=== PATIENT | male | born 1940 | race Caucasian/White ===

== ENCOUNTER → 2016-04-29 | Outpatient (CLI) | payer MEDICARE, BC ==
[~2016-04-29] MED LIST: 00186-0372-20 IH; ASPIRIN 32325 MG/TAB; ASPIRIN 32325 MG/TAB PO; ASPIRIN 81M81 MG/TA2 PO; CARDURA 8MG TAB8 MG PO; DOXAZOCIN PO; DULERA1 ARO IH; FISH OIL1000 MG PO; MULTI VITAMINS1 TAB PO; MULTIPLE VITAMI1 CAP PO; PEPCID 20MG TAB20 MG PO; PLAVIX 75MG TAB75 MG PO; PRILOSEC 20MG20 MG PO; PRILOSEC10 MG PO; PROSCAR 5MG5 MG PO; PROSCAR PO; RT SPIRIVA18 MCG IH; SYNTHROID PO; SYNTHROID0.175 MG PO; TOPROL XL 25MG25 MG PO; TOPROL XL 50MG50 MG PO; VITAMIN B-6100 MG; ZOCOR 20MG20 MG PO; statin
== END ==
LOC: COL.RAD 06:32
DX: R07.89 Other chest pain (principal); K44.9 Diaphragmatic hernia without obstruction or gangrene; K76.9 Liver disease, unspecified
CPT/HCPCS: Q9967

== ENCOUNTER → 2016-05-01 | Outpatient (CLI) | payer MEDICARE, BC ==
[~2016-05-01] VITALS: Ht 185.4 cm; Wt 113.0 kg
[2016-05-01 08:22] VITALS: BP 124/74; PULSE 89
[2016-05-01 09:49] VITALS: BP 97/49; PULSE 87
[2016-05-01 09:50] VITALS: BP 110/55; PULSE 89
[2016-05-01 09:51] VITALS: BP 110/55; PULSE 86
== END ==
LOC: COL.CARD 08:05
DX: R07.89 Other chest pain (principal); R94.39 Abnormal result of other cardiovascular function study
CPT/HCPCS: A9502; J2785

== ENCOUNTER 2016-05-06 07:52 | Day surgery (SDC) | payer MEDICARE, BC ==
[~2016-05-06] VITALS: Ht 185.6 cm; Wt 113.0 kg
[2016-05-06] VITALS (12 sets, daily range): BP systolic 90–137; BP diastolic 51–75; PULSE 55–90; TEMP 98.2
[~2016-05-06 07:52] MED LIST changes: -PRILOSEC10 MG PO; -TOPROL XL 25MG25 MG PO
[2016-05-06 08:35] LABS: HEMATOCRIT 42.9 % (42.0-52.0); HEMOGLOBIN 14.2 g/dl (13.5-18.0); MEAN CELL VOLUME 96 fl (80.0-100.0); MEAN CORPUSCULAR HEMOGLOBIN 32 pg (27.0-31.0); MEAN CORPUSCULAR HGB CONC 33 g/dl (33.0-37.0); MEAN PLATELET VOLUME 10.1 fl (7.4-10.4); PLATELET COUNT 185 K/mm3 (130-400); RED BLOOD COUNT 4.45 M/mm3 (4.20-5.60); REDCELL DISTRIBUTION WIDTH-CV 13.8 % (11.5-14.5); WHITE BLOOD COUNT 6.8 K/mm3 (4.8-10.8)
[2016-05-06 08:43] LABS: INR 1.1 (0.8-3.0); PROTHROMBIN TIME 11.9 SECONDS (9.7-12.8)
[2016-05-06] MEDS ORDERED: PEPCID 20MG TAB20 MG PO (08:43)
[2016-05-06] MEDS ORDERED: RT SPIRIVA18 MCG IH (08:45)
[2016-05-06] MEDS ORDERED: PRILOSEC10 MG PO (08:45)
[2016-05-06 08:55] LABS: CALCIUM 9.2 mg/dL (8.4-10.2); CREATININE, serum 0.89 mg/dL (0.66-1.25); POTASSIUM 4.1 mmol/L (3.4-5.0)
[2016-05-06] MEDS ORDERED: TOPROL XL 25MG25 MG PO (16:01)
== END 2016-05-06 16:38 | disposition home or self-care (01) ==
LOC: EUO 07:52 → COL.RAD 10:45 → EUO 10:45
PROVIDERS: Internal Medicine Cardiovascular Disease
DX: I25.10 Atherosclerotic heart disease of native coronary artery without angina pectoris (principal); R94.39 Abnormal result of other cardiovascular function study; I08.3 Combined rheumatic disorders of mitral, aortic and tricuspid valves; R07.89 Other chest pain; N40.0 Benign prostatic hyperplasia without lower urinary tract symptoms; E78.5 Hyperlipidemia, unspecified; I10 Essential (primary) hypertension; E03.9 Hypothyroidism, unspecified; M19.90 Unspecified osteoarthritis, unspecified site; F17.210 Nicotine dependence, cigarettes, uncomplicated; Z79.82 Long term (current) use of aspirin; Z79.899 Other long term (current) drug therapy; Z95.5 Presence of coronary angioplasty implant and graft
CPT/HCPCS: C1760; J2250; J3010; Q9967

== ENCOUNTER → 2016-06-26 | Outpatient (CLI) | payer MEDICARE, BC ==
[~2016-06-26] MED LIST changes: +PRILOSEC10 MG PO; +TOPROL XL 25MG25 MG PO
[2016-06-26 07:34] LABS: CREATININE, serum 0.9 mg/dL (0.66-1.25)
== END ==
LOC: COL.RAD 06:37
PROVIDERS: Family Medicine
DX: R10.812 Left upper quadrant abdominal tenderness (principal)
CPT/HCPCS: Q9967

== ENCOUNTER 2018-01-14 07:39 | Day surgery (SDC) | payer MEDICARE, BC ==
[~2018-01-14] VITALS: Ht 185.5 cm; Wt 117.0 kg
[2018-01-14] VITALS (12 sets, daily range): BP systolic 105–121; BP diastolic 64–82; PULSE 60–72; TEMP 98.2
[2018-01-14 08:25] LABS: HEMATOCRIT 44.2 % (42.0-52.0); HEMOGLOBIN 14.5 g/dl (13.5-18.0); MEAN CELL VOLUME 100 fl (80.0-100.0); MEAN CORPUSCULAR HEMOGLOBIN 33 pg (27.0-31.0); MEAN CORPUSCULAR HGB CONC 33 g/dl (33.0-37.0); MEAN PLATELET VOLUME 9.9 fl (7.4-10.4); PLATELET COUNT 194 K/mm3 (130-400); RED BLOOD COUNT 4.41 M/mm3 (4.20-5.60); REDCELL DISTRIBUTION WIDTH-CV 13.6 % (11.5-14.5)
[2018-01-14 08:31] LABS: PROTHROMBIN TIME 11.9 SECONDS (9.7-12.8)
[2018-01-14 08:42] LABS: CALCIUM 9.2 mg/dL (8.4-10.2); CREATININE, serum 0.91 mg/dL (0.66-1.25); POTASSIUM 4.1 mmol/L (3.4-5.0)
== END 2018-01-14 15:23 | disposition home or self-care (01) ==
LOC: COL.CAR 07:39
PROVIDERS: Internal Medicine Cardiovascular Disease
DX: I25.119 Atherosclerotic heart disease of native coronary artery with unspecified angina pectoris (principal); I10 Essential (primary) hypertension; E78.5 Hyperlipidemia, unspecified; J44.9 Chronic obstructive pulmonary disease, unspecified; N40.0 Benign prostatic hyperplasia without lower urinary tract symptoms; M19.90 Unspecified osteoarthritis, unspecified site; F17.210 Nicotine dependence, cigarettes, uncomplicated; Z79.82 Long term (current) use of aspirin; Z82.49 Family history of ischemic heart disease and other diseases of the circulatory system; Z95.5 Presence of coronary angioplasty implant and graft
CPT/HCPCS: J1644; J2250; J3010

== ENCOUNTER 2019-09-05 03:23 | Emergency (ER) | payer MEDICARE, BC ==
[~2019-09-05] VITALS: Ht 185.4 cm; Wt 119.1 kg
[2019-09-05 03:31] VITALS: TEMP 98.1
[2019-09-05 03:54] LABS: BASO # 0.1 (0.0-0.2); BASO % 0.9 % (0.0-2.0); EOS # 0.3 (0.0-0.7); EOS % 3.5 % (0-4.0); GRAN # 4.9 (1.4-6.5); GRAN % 63.5 % (42.2-75.2); HEMATOCRIT 41.8 % (42.0-52.0); HEMOGLOBIN 13.4 g/dl (13.5-18.0); LYMPH # 1.8 (1.2-3.4); LYMPH % 23.1 % (20.0-51.0); MEAN CELL VOLUME 101 fl (80.0-100.0); MEAN CORPUSCULAR HEMOGLOBIN 32 pg (27.0-31.0); MEAN CORPUSCULAR HGB CONC 32 g/dl (33.0-37.0); MEAN PLATELET VOLUME 10.4 fl (7.4-10.4); MONO # 0.7 (0.1-0.6); MONO % 8.7 % (1.7-9.3); PLATELET COUNT 193 K/mm3 (130-400); RED BLOOD COUNT 4.15 M/mm3 (4.20-5.60)
[2019-09-05 04:07] LABS: ALANINE AMINOTRANSFERASE 12 U/L (4-49); ALBUMIN 3.8 gm/dL (3.5-5.0); ALKALINE PHOSPHATASE 69 U/L (50-136); ANION GAP 3 mmol/L (7-16); AST,SGOT 21 U/L (15-37); BILIRUBIN,TOTAL 0.4 mg/dL (0.0-1.0); BLOOD UREA NITROGEN 17 mg/dL (9-20); CALCIUM 8.8 mg/dL (8.4-10.2); CARBON DIOXIDE 30 mmol/L (22-30); CHLORIDE 106 mmol/L (98-107); CREATININE, serum 0.89 (0.66-1.25); GLUCOSE 107 mg/dL (74-106); POTASSIUM 3.9 mmol/L (3.4-5.0); SODIUM 138 mmol/L (137-145); TOTAL PROTEIN 6.9 gm/dL (6.4-8.2)
[2019-09-05 04:19] LABS: TROPONIN-I < 0.012 ng/mL (0.000-0.035)
[2019-09-05 04:47] VITALS: BP 154/70; PULSE 68
== END 2019-09-05 04:47 | disposition home or self-care (01) ==
LOC: COL.ER 03:23
PROVIDERS: Emergency Medicine
DX: G44.009 Cluster headache syndrome, unspecified, not intractable (principal); J44.9 Chronic obstructive pulmonary disease, unspecified; E03.9 Hypothyroidism, unspecified; E78.5 Hyperlipidemia, unspecified; F17.210 Nicotine dependence, cigarettes, uncomplicated; Z95.9 Presence of cardiac and vascular implant and graft, unspecified; Z79.82 Long term (current) use of aspirin; Z79.890 Hormone replacement therapy

== ENCOUNTER 2022-04-12 13:34 | Emergency (ER) | payer MEDICARE, BC ==
[~2022-04-12] VITALS: Ht 185.4 cm; Wt 120.5 kg
[2022-04-12 13:52] VITALS: TEMP 98
[2022-04-12 14:07] LABS: BASO # 0.1 K/mm3 (0.0-0.2); BASO % 0.7 % (0.0-2.0); EOS # 0.2 K/mm3 (0.0-0.7); EOS % 2.5 % (0.0-4.0); GRAN # 5.4 K/mm3 (1.4-6.5); GRAN % 63.5 % (42.2-75.2); HEMATOCRIT 40.2 % (42.0-52.0); HEMOGLOBIN 12.9 g/dl (13.5-18.0); LYMPH # 2.1 K/mm3 (1.2-3.4); MEAN CELL VOLUME 100 fl (80.0-100.0); MEAN CORPUSCULAR HEMOGLOBIN 32 pg (27-31); MEAN CORPUSCULAR HGB CONC 32 g/dl (33.0-37.0); MEAN PLATELET VOLUME 10.2 fl (7.4-10.4); MONO # 0.7 K/mm3 (0.1-0.6); MONO % 7.8 % (1.7-9.3); PLATELET COUNT 221 K/mm3 (130-400); RED BLOOD COUNT 4.01 M/mm3 (4.20-5.60); REDCELL DISTRIBUTION WIDTH-CV 13.4 % (11.5-14.5)
[2022-04-12 14:30] LABS: ALANINE AMINOTRANSFERASE 11 U/L (0-55); ALBUMIN 3.3 gm/dL (3.4-4.8); ALKALINE PHOSPHATASE 65 U/L (40-150); ANION GAP 10 mmol/L (7-16); AST,SGOT 11 U/L (5-34); BILIRUBIN,TOTAL 0.3 mg/dL (0.2-1.2); BLOOD UREA NITROGEN 21 mg/dL (8-26); CARBON DIOXIDE 27 mmol/L (23-31); CHLORIDE 108 mmol/L (98-107); CREATININE, serum 0.88 mg/dL (0.72-1.25); GLUCOSE 99 mg/dL (70-99); POTASSIUM 4.5 mmol/L (3.5-4.5); SODIUM 145 mmol/L (136-145); TOTAL PROTEIN 6.5 gm/dL (6.2-8.1)
[2022-04-12 14:36] LABS: TROPONIN-I < 0.010 ng/mL (0.00-0.033)
[2022-04-12 16:35] VITALS: BP 121/71; PULSE 72
[2022-04-13] MEDS ORDERED: NEURONTIN300 MG/CAP PO (16:44)
[2022-04-13] MEDS ORDERED: 00186-0372-20 IH (16:47)
[2022-04-15] MEDS ORDERED: LIPITOR 80MG80 MG PO (10:29)
[2022-04-15] MEDS ORDERED: PLAVIX 75MG TAB75 MG PO (10:29)
[2022-04-15] MEDS ORDERED: IMDUR 60MG60 MG/TAB PO (10:30)
[2022-04-15] MEDS ORDERED: TOPROL XL 25MG25 MG PO (10:31)
[2022-04-15] MEDS ORDERED: ASPIRIN 81M81 MG/TA2 PO (10:31)
== END 2022-04-12 16:41 | disposition home or self-care (01) ==
LOC: COL.ER 13:34
PROVIDERS: Emergency Medicine
DX: R07.9 Chest pain, unspecified (principal); F17.210 Nicotine dependence, cigarettes, uncomplicated; Z28.310 Unvaccinated for COVID-19

== ENCOUNTER 2022-04-30 10:16 | Emergency (ER) | payer MEDICARE, BC ==
[~2022-04-30] VITALS: Ht 185.4 cm; Wt 118.2 kg
[~2022-04-30 10:16] MED LIST changes: +IMDUR 60MG60 MG/TAB PO; +LIPITOR 80MG80 MG PO; +NEURONTIN300 MG/CAP PO
[2022-04-30 10:38] LABS: BASO # 0.1 K/mm3 (0.0-0.2); EOS # 0.2 K/mm3 (0.0-0.7); EOS % 2.6 % (0.0-4.0); GRAN # 4.8 K/mm3 (1.4-6.5); GRAN % 66.4 % (42.2-75.2); HEMOGLOBIN 13.5 g/dl (13.5-18.0); LYMPH # 1.6 K/mm3 (1.2-3.4); LYMPH % 22.3 % (20.0-51.0); MEAN CELL VOLUME 99 fl (80.0-100.0); MEAN CORPUSCULAR HEMOGLOBIN 33 pg (27-31); MEAN CORPUSCULAR HGB CONC 33 g/dl (33.0-37.0); MEAN PLATELET VOLUME 9.8 fl (7.4-10.4); MONO # 0.6 K/mm3 (0.1-0.6); MONO % 7.6 % (1.7-9.3); PLATELET COUNT 220 K/mm3 (130-400); RED BLOOD COUNT 4.13 M/mm3 (4.20-5.60); REDCELL DISTRIBUTION WIDTH-CV 13.9 % (11.5-14.5)
[2022-04-30 10:50] LABS: PROTHROMBIN TIME 11.1 SECONDS (9.7-12.8)
[2022-04-30 10:58] LABS: ALANINE AMINOTRANSFERASE 16 U/L (0-55); ALBUMIN 3.7 gm/dL (3.4-4.8); ALKALINE PHOSPHATASE 66 U/L (40-150); ANION GAP 9 mmol/L (7-16); AST,SGOT 13 U/L (5-34); BILIRUBIN,TOTAL 0.6 mg/dL (0.2-1.2); BLOOD UREA NITROGEN 11 mg/dL (8-26); CALCIUM 9.4 mg/dL (8.4-10.2); CARBON DIOXIDE 27 mmol/L (23-31); CHLORIDE 105 mmol/L (98-107); CREATININE, serum 0.84 mg/dL (0.72-1.25); GLUCOSE 113 mg/dL (70-99); POTASSIUM 4.1 mmol/L (3.5-4.5); SODIUM 141 mmol/L (136-145); TOTAL PROTEIN 6.8 gm/dL (6.2-8.1)
[2022-04-30 11:06] LABS: TROPONIN-I < 0.010 ng/mL (0.00-0.033)
[2022-04-30 13:19] VITALS: BP 105/87; PULSE 70; TEMP 98.1
== END 2022-04-30 13:05 | disposition home or self-care (01) ==
LOC: COL.ER 10:16
PROVIDERS: Physician Assistant
DX: T82.847A Pain due to cardiac prosthetic devices, implants and grafts, initial encounter (principal); R07.89 Other chest pain; F17.200 Nicotine dependence, unspecified, uncomplicated; Y71.8 Miscellaneous cardiovascular devices associated with adverse incidents, not elsewhere classified; Z79.82 Long term (current) use of aspirin; Z79.02 Long term (current) use of antithrombotics/antiplatelets; Z95.5 Presence of coronary angioplasty implant and graft

== ENCOUNTER 2023-10-24 11:19 | Emergency (ER) | payer MEDICARE, BC ==
[~2023-10-24] VITALS: Ht 185.4 cm; Wt 119.1 kg
[~2023-10-24 11:19] MED LIST changes: +ASMANEX HF200 MCG/Ac IH; +DULERA1 AR1 IH; +LUTEIN6 MG PO; +NEURONTIN100 MG/CAP PO; +NITROSTAT0.4 MG/TAB SL; +VITAMIN D31000 IU PO
[2023-10-24 11:25] VITALS: TEMP 98.2
[2023-10-24 12:26] LABS: BASO # 0.1 K/mm3 (0.0-0.2); BASO % 0.8 % (0.0-2.0); EOS # 0.2 K/mm3 (0.0-0.7); EOS % 2.8 % (0.0-4.0); GRAN # 5.3 K/mm3 (1.4-6.5); GRAN % 67.3 % (42.2-75.2); HEMATOCRIT 43.3 % (42.0-52.0); HEMOGLOBIN 13.8 g/dl (13.5-18.0); LYMPH # 1.7 K/mm3 (1.2-3.4); LYMPH % 21.1 % (20.0-51.0); MEAN CELL VOLUME 103 fl (80.0-100.0); MEAN CORPUSCULAR HEMOGLOBIN 33 pg (27-31); MEAN CORPUSCULAR HGB CONC 32 g/dl (33.0-37.0); MEAN PLATELET VOLUME 9.8 fl (7.4-10.4); MONO # 0.6 K/mm3 (0.1-0.6); MONO % 7.6 % (1.7-9.3); PLATELET COUNT 218 K/mm3 (130-400); RED BLOOD COUNT 4.21 M/mm3 (4.20-5.60); REDCELL DISTRIBUTION WIDTH-CV 13.9 % (11.5-14.5)
[2023-10-24 12:38] LABS: ALANINE AMINOTRANSFERASE 16 U/L (0-55); ALBUMIN 3.2 g/dL (3.4-4.8); ALKALINE PHOSPHATASE 79 U/L (40-150); ANION GAP 9 mmol/L (7-16); AST,SGOT 13 U/L (5-34); BILIRUBIN,TOTAL 0.4 mg/dL (0.2-1.2); BLOOD UREA NITROGEN 19 mg/dL (8-26); CALCIUM 8.5 mg/dL (8.4-10.2); CHLORIDE 106 mEq/L (98-107); CREATININE, serum 0.82 mg/dL (0.72-1.25); GLUCOSE 109 mg/dL (70-99); POTASSIUM 4.2 mEq/L (3.5-4.5); SODIUM 140 mEq/L (136-145); TOTAL PROTEIN 6.2 g/dl (6.2-8.1)
[2023-10-24 12:42] LABS: PROTHROMBIN TIME 11.3 SECONDS (9.7-12.8)
[2023-10-24 12:45] LABS: LIPASE 13 U/L (8-78); TROPONIN-I < 0.010 ng/mL (0.00-0.033)
[2023-10-24] MEDS ORDERED: Iohexol 300 - 100 ML VIAL IV ONE (13:00)
[2023-10-24] MEDS ORDERED: NS 100 ML IV ONE (13:00)
[2023-10-24 14:32] LABS: PH 5.5 (5.0-8.5); URINE APPEARANCE CLEAR (CLEAR/HAZY); URINE BLOOD NEGATIVE (NEGATIVE); URINE COLOR YELLOW (YELLOW); URINE GLUCOSE NEGATIVE (NEGATIVE); URINE KETONE NEGATIVE (NEGATIVE); URINE NITRATE NEGATIVE (NEGATIVE); URINE PROTEIN(semi-quant) NEGATIVE (NEGATIVE)
[2023-10-24 14:44] LABS: COLLECTION METHOD CLEAN CATCH
[2023-10-24 15:50] VITALS: BP 115/65; PULSE 63
== END 2023-10-24 15:50 | disposition home or self-care (01) ==
LOC: COL.ER 11:19
PROVIDERS: Family Medicine
DX: G50.0 Trigeminal neuralgia (principal)
CPT/HCPCS: Q9967